=== PATIENT | female | born 1995 | race African-American/Black ===

== ENCOUNTER 2017-07-07 22:24 | Emergency (ER) | payer SELFPAY ==
--- NOTE | 2017-07-07 23:02 | ED Physician Chart ---
ED Chief Complaint/HPI - Patient Information Date Seen:: 07/07/17 Time Seen:: 22:45 Chief Complaint:: altered level of consciousness History of Present Illness:: Patient was found wandering by the police. She gives her first name only she denies headache. She does not say where she lives. Her Accu-Chek in the field was 117. Paramedics EKG showed a normal sinus rhythm with a rate [address] elevation suggesting early repolarization. 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 Review of Systems - Review of Systems General/Constitutional: No fever, No chills, No weight loss, No weakness, No diaphoresis, No edema, No loss of appetite Skin: No skin lesions, No rash, No bruising Head: No headache, No light-headedness Eyes: No loss of vision, No pain, No diplopia ENT: No earache, No nasal drainage, No sore throat, No tinnitus Neck: No neck pain, No swelling, No thyromegaly, No stiffness, No mass noted Cardio Vascular: No chest pain, No palpitations, No PND, No orthopnea, No edema Pulmonary: No SOB, No cough, No sputum, No wheezing GI: No nausea, No vomiting, No diarrhea, No pain, No melena, No hematochezia, No constipation, No hematemesis G/U: No dysuria, No frequency, No hematuria Musculoskeletal: No bone or joint pain, No back pain, No muscle pain Endocrine: No polyuria, No polydipsia Psychiatric: No suicidal ideation, Other (unknown) Hematopoietic: No bruising, No lymphadenopathy Allergic/Immuno: No urticaria, No angioedema Neurological: No syncope, No focal symptoms, No weakness, No paresthesia, No headache, No seizure, No dizziness, No confusion, No vertigo ED Past Medical History - Past Medical History Past Medical History: Other (unknown) Family History: Other (unknown) Social History: Smoker, No Alcohol Surgical History: None Psychiatricy History: Other (unknown) Medication: None, Reviewed Medication Reviewed:: Unknown Family Medical History - Family Member Mother History Unknown: Yes ED Physical Exam - Physical Examination General/Constitutional: Well-developed, well-nourished, Alert, No distress Other Gen/Cons comments:: Provides first name only Head: Atraumatic Eyes: Lids, conjuctiva normal, PERRL, EOMI Other Eyes comments:: Optic discs are sharp Skin: Nl inspection, No rash, No skin lesions, No ecchymosis, Well hydrated, No lymphadenopathy ENMT: External ears, nose nl, Nasal exam nl, Lips, teeth, gums nl, Oropharynx nl , Tonsils nl Neck: No nuchal rigidity Respiratory: Nl effort/Exclusion, Clear to Auscultation, No Wheeze/Rhonchi/Rales Cardio Vascular: RRR, No murmur, gallop, rubs GI: No tenderness/rebounding/guarding, No organomegaly, No hernia, Normal BS's : No CVA tenderness Extremities: Normal digits & nails Neuro/Psych: No focal deficits Misc: No paraspinal tenderness ED Labs/Radiology/EKG Results - Lab Results Results: Laboratory Results - last 24 hr 07/07/17 07/07/17 07/07/17 23:00 23:00 23:02 WBC 5.6 RBC 4.20 Hgb 12.0 Hct 36.7 L MCV 87.3 MCH 28.5 MCHC Differential 32.7 RDW 14.5 Plt Count 322 MPV 7.4 Neutrophils % 55.8 Lymphocytes % 29.3 Monocytes % 11.5 H Eosinophils % 3.2 Basophils % 0.2 Sodium Potassium Chloride Carbon Dioxide Anion Gap BUN Creatinine Est GFR ( Amer) Est GFR (Non-Af Amer) BUN/Creatinine Ratio Glucose Calcium Urine Source CLEAN C Urine Color RED Urine Clarity CLOUDY H Urine pH 5.5 Ur Specific [place] 1.025 Urine Protein >=300 Urine Glucose (UA) NEGATIVE Urine Ketones 15 H Urine Blood LARGE H Urine Nitrate POSITIVE H Urine Bilirubin NEGATIVE Urine Urobilinogen 1.0 Ur Leukocyte Esterase SMALL H Urine RBC >100 H Urine WBC 6-10 H Ur Epithelial Cells MODERATE Urine Bacteria MODERATE H Urine Test NEGATIVE POC Ur Test Ethyl Alcohol 07/07/17 07/07/17 23:02 23:12 WBC RBC Hgb Hct MCV MCH MCHC Differential RDW Plt Count MPV Neutrophils % Lymphocytes % Monocytes % Eosinophils % Basophils % Sodium 132 L Potassium 3.4 L Chloride 100 Carbon Dioxide 24.5 Anion Gap 10.9 BUN 15 Creatinine 0.7 Est GFR ( Amer) > 60.0 Est GFR (Non-Af Amer) > 60.0 BUN/Creatinine Ratio 21.4 Glucose 99 Calcium 9.1 Urine Source Urine Color Urine Clarity Urine pH Ur Specific [place] Urine Protein Urine Glucose (UA) Urine Ketones Urine Blood Urine Nitrate Urine Bilirubin Urine Urobilinogen Ur Leukocyte Esterase Urine RBC Urine WBC Ur Epithelial Cells Urine Bacteria Urine Test POC Ur Test Negative Ethyl Alcohol < 10 ED Assessment - Assessment General Assessment: I did not order a CT head as I believed that the chances it would show anything abnormal were exceedingly small and that it would just expose the patient to unnecessary radiation exposure. My neurological exam was thorough including fundoscopy which showed normal optic discs indicating no increased intracranial pressure. Rand CHAND had called me and asked if I wanted a CT head and I had said no. When I came down to the emergency department again a CT scan had been ordered. Kole CHAND explained he had contacted the nursing boots and shoes supervisor Jesi CHAND and that she had said it was protocol to order it because the patient had an altered level of consciousness. Earlier in the shift Kole CHAND had been watching the basketball playoffs and bouncing a rubber ball off the wall. When he was sitting next to me tossing the ball I half jokingly said to him "If the administrator of home health shows up unexpectedly she may start bouncing your head off the wall." He replied "Let her try." The patient's CT scan was normal but her urine drug screen was positive for amphetamines, cocaine and metamphetamines. ED Septic Shock - . Is Septic Shock (SBP<90, OR Lactate>4 mmol\\L) present?: No - <6hrs of presentation: Vital Signs: Vital Signs - 8 hr 07/07/17 22:24 Temp 97.2 F HR 83 RR 17 BP 101/68 O2 Sat % 97 ED Reassessment (Disposition) - Reassessment Reassessment:: At 0132 patient would still give only her first name. I asked her last name and where she lives and she said she did not know to both questions. At 0815 patient's status was unchanged. She gave a first name only and no other information. The patient may have a mental disability. We contacted the [place] and [place] police departments and there was no report of a missing person. Will have the social work nurse involved when he/she gets here at about 0900. - Diagnosis Diagnosis:: Altered mental status; illicit drug use
[2017-07-07 23:10] LABS: % BASOPHILS 0.2 % (0.0-2.0); % EOSINOPHILS 3.2 % (0.0-5.0); % LYMPHOCYTES 29.3 % (20.0-50.0); % MONOCYTES 11.5 % (2.0-10.0); % NEUTROPHILS 55.8 % (40.0-80.0); EOSINOPHILE ABSOLUTE 0.2 Th/cmm (0.1-0.4); HEMATOCRIT 36.7 % (41.0-60); LYMPHOCYTE ABSOLUTE 1.6 Th/cmm (1.5-3.0); MEAN CELL VOLUME 87.3 fl (81-100); MEAN CORPUSCULAR HEMOGLOBIN 28.5 pg (27.0-31.0); MEAN CORPUSCULAR HGB CONC 32.7 pg (28.0-36.0); MEAN PLATELET VOLUME 7.4 fl; MONOCYTE ABSOLUTE 0.6 Th/cmm (0.3-1.0); NEUTROPHILE ABSOLUTE 3.2 Th/cmm (1.8-8.0); PLATELET COUNT 322 Th/cmm (150-400); RED CELL DISTRIBUTION WIDTH 14.5 % (11.5-20.0); WHITE BLOOD COUNT 5.6 Th/cmm (4.8-10.8)
[2017-07-07 23:12] LABS: URINE MICROSCOPIC INDICATED? YES; URINE SOURCE CLEAN C
[2017-07-07 23:15] LABS: URINE BILIRUBIN NEGATIVE (NEGATIVE); URINE BLOOD LARGE (NEGATIVE); URINE GLUCOSE (UA) NEGATIVE (NEGATIVE); URINE KETONE 15 mg/dL (NEGATIVE); URINE LEUKOCYTE ESTERASE SMALL (NEGATIVE); URINE NITRATE POSITIVE (NEGATIVE); URINE PH 5.5 (4.6 - 8.0); URINE PROTEIN >=300 mg/dL (NEGATIVE)
[2017-07-07 23:26] LABS: ANION GAP 10.9 (7.0-16.0); BUN - UREA NITROGEN 15 mg/dL (7-25); CALCIUM SERUM 9.1 mg/dL (8.6-10.3); CARBON DIOXIDE 24.5 mEq/L (21.0-31.0); CHLORIDE 100 mEq/L (98-107); CREATININE - SERUM 0.7 mg/dL (0.6-1.2); GFR AFRICAN-AMERICAN > 60.0 ml/min (>90); GFR NON AFRICAN-AMERICAN > 60.0 ml/min; GLUCOSE 99 mg/dL (70-105); POTASSIUM SERUM 3.4 mEq/L (3.5-5.1); SODIUM SERUM 132 mEq/L (136-145)
[2017-07-07 23:32] LABS: URINE CLARITY CLOUDY (CLEAR); URINE COLOR RED
[2017-07-07 23:33] LABS: URINE BACTERIA MODERATE /hpf (NONE SEEN); URINE EPITHELIAL CELLS MODERATE /lpf (FEW); URINE RBC >100 /hpf (0-5)
[2017-07-08 00:01] LABS: AMPHETAMINE URINE POSITIVE (NEGATIVE)
[2017-07-08 00:02] LABS: BARBITURATES URINE NEGATIVE (NEGATIVE); BENZODIAZEPINES QUAL URINE NEGATIVE (NEGATIVE); CANNABINOID THC NEGATIVE (NEGATIVE); COCAINE METABOLITE QUAL URINE POSITIVE (NEGATIVE); METHADONE URINE NEGATIVE (NEGATIVE); METHAMPHETAMINES QUAL URINE POSITIVE (NEGATIVE); OPIATES (MORPHINE) QUAL. URINE NEGATIVE (NEGATIVE); PHENCYCLIDINE (PCP) URINE NEGATIVE (NEGATIVE); TRICYCLICS (TCA) QUAL. URINE NEGATIVE (NEGATIVE)
--- NOTE | 2017-07-08 07:37 | Diagnostic Imaging Report ---
Head CT without intravenous contrast Indication: Altered mental status Comparison: None Technique: Axial images were obtained from the vertex to the skull base without IV contrast. Coronal reconstructions were made. Total DLP: [id number], [id number] FINDINGS: Images of the brain obtained without contrast demonstrate no evidence of an acute hemorrhage. The aly-white matter differentiation is preserved. The ventricles and basal cisterns are patent. No mass effect or midline shift. No evidence of a skull fracture or focal soft tissue swelling. The paranasal sinuses demonstrate minimal mucosal thickening. IMPRESSION: No acute intracranial abnormality.
[2017-07-08] MEDS ORDERED: Potassium Chloride 20 mEq ER Tab PO ONE ×2 (09:29→09:41)
== END 2017-07-08 10:17 | disposition left against medical advice (07) ==
LOC: ER 22:24
DX: R40.4 Transient alteration of awareness (principal); F11.90 Opioid use, unspecified, uncomplicated
CPT/HCPCS: 99285; 36415; 80307; 85025; 87086; 81001; 80320; 81025 ×2; 80048; 70450; J0696; Z7610